=== PATIENT | male | born 1990 | race Caucasian/White ===

== ENCOUNTER → 2022-01-20 | Outpatient (CLI) | payer BC, OTHER ==
--- NOTE | 2022-01-20 18:34 | Diagnostic Imaging Report ---
INDICATION: Chronic lower back pain. COMPARISON: None available. TECHNIQUE: Three radiographs of the lumbar spine dated 01/20/2022. FINDINGS: Lumbarization of the S1 vertebral body is noted. No significant anterolisthesis or retrolisthesis. Mild anterior wedging is identified within the lower thoracic spine without discrete fracture plane. This is noted in consecutive vertebral bodies. Otherwise, vertebral body heights are well maintained. Disc space heights are well maintained. Degenerative changes associated with the bilateral sacroiliac joints. No acute fracture or dislocation. Mild scattered facet joint degenerative changes. IMPRESSION: No acute osseous abnormality with scattered osseous degenerative changes, greatest involving the bilateral sacroiliac joints. Mild anterior wedging within the lower thoracic spine, favored to be chronic in nature. Partial lumbarization of the S1 vertebral body. Dictated on workstation # [id number]
== END ==
LOC: RAD 12:41
PROVIDERS: ATTEND Family Medicine
DX: M54.50 Low back pain, unspecified (principal); G89.29 Other chronic pain
CPT/HCPCS: 72100